=== PATIENT | female | born 1945 | race Caucasian/White ===

== ENCOUNTER 2020-01-21 12:23 | Outpatient (CLI) | payer MEDICARE, SELFPAY ==
--- NOTE | 2020-01-21 | USCV_ITS ---
Oc Edy Age: 74 Gender: F : 1945 Exam Date: 01/21/2020 12:44 Ordering Phys: Marisela Wade MD Technologist: Exam Location: [facility] [place]_ Indication: PAIN IN LEGS RIGHT LEFT Brachial 176.00 mmHg Brachial 165.00 mmHg Pressure (mmHg) Waveform Pressure (mmHg) Waveform 196.00 Above Knee 200.00 200 210.00 Below Knee 178.00 178 189.00 RECORD CHANGER 188.00 188 111.00 DPA 157.00 1.07 Ankle/Brachial Index 1.07 130.00 Pre-Exercise Toe Pressure 118.00 0.74 Pre-Exercise Toe/Brachial Index 0.67 FINDINGS Normal resting ABIs bilaterally Normal resting TBI on the right side with minimally diminished resting TBI on the left side Loss of dicrotic notch in the PVR waveforms bilaterally CONCLUSIONS Features suggestive of mild peripheral artery disease bilaterally No similar previous studies available for comparison Dr Sagrario Hansen MD [facility] (Electronically Signed) Final Date: 21 Jan 2020 14:12 S
--- NOTE | 2020-01-21 | XR_ITS ---
WS: [id number] XR chest 2V* [id number] REASON FOR EXAM: SHORTNESS OF BREATH FINDINGS: The lung kumar are hyper aerated with flattening of the hemidiaphragm. Nodules are seen in the upper left chest that show calcification. There is granulomas also seen off the right hilum. There is no definite pneumonia, pleural effusion, pulmonary edema, or mass effect. The hilum and apices normal. XR/XR chest 2V* [id number] IMPRESSION: Chronic obstructive pulmonary disease. Granulomas in both lung kumar.
== END 2020-01-21 12:24 | disposition home or self-care (01) ==
LOC: RAD 12:35
PROVIDERS: PCP Internal Medicine; Visit Provider Internal Medicine
DX: R06.02 Shortness of breath (principal); I73.9 Peripheral vascular disease, unspecified; J44.9 Chronic obstructive pulmonary disease, unspecified; J84.10 Pulmonary fibrosis, unspecified; M79.605 Pain in left leg; M79.604 Pain in right leg
CPT/HCPCS: 71046; 93923

== ENCOUNTER 2020-02-28 07:32 | Outpatient (CLI) | payer MEDICARE, SELFPAY ==
--- NOTE | 2020-02-28 10:19 | PFTS_ITS ---
Date of Study:02/28/20 Date of Dictation: MECHANICS: Forced vital capacity (FVC) is normal. Forced expiratory volume in one second (FEV1) is normal. FEV1/FVC is . FLOW VOLUME LOOP: Normal. LUNG VOLUMES: Not measured DIFFUSING CAPACITY FOR CARBON MONOXIDE: Not measured INTERPRETATION: The spirometry is normal. MTDD
== END 2020-02-28 07:33 | disposition home or self-care (01) ==
LOC: RT 07:36
PROVIDERS: PCP Internal Medicine; Visit Provider Internal Medicine
DX: J44.9 Chronic obstructive pulmonary disease, unspecified (principal); R06.02 Shortness of breath
CPT/HCPCS: 94010

== ENCOUNTER 2021-12-31 09:45 | Outpatient (CLI) | payer MEDICARE, SELFPAY ==
--- NOTE | 2021-12-31 09:55 | XR_ITS ---
WS: [email or web address] Exam: XR knee LT 3V* [id number] Date/Time of Exam: 12/31/2021 9:58 AM Reason For Exam: LEFT KNEE PAIN No fracture or dislocation noted. Articular relationships are intact. No joint effusion. XR/XR knee LT 3V* [id number] Impression: Normal left knee Kellgren-Nick Classification: 0
== END 2021-12-31 09:46 | disposition home or self-care (01) ==
LOC: RAD 09:47
PROVIDERS: PCP Internal Medicine; Visit Provider Internal Medicine
DX: M25.562 Pain in left knee (principal)
CPT/HCPCS: 73562

== ENCOUNTER 2022-02-21 05:38 | Outpatient (CLI) | payer MEDICARE, SELFPAY ==
--- NOTE | 2022-02-21 | USCV_ITS ---
Edy Renae Age: 76 Gender: F : 1945 Exam Date: 02/21/2022 06:07 Ordering Phys: Marisela Wade MD Technologist: NIXON Exam Location: [facility] – [place] Indication: LUE SWELLING WITH PULSATILE AREA AT ACF Risk Factors: Previous Vascular Surgery: Right BP: / Left BP: / RIGHT LEFT PSV PSV (cm/s) (cm/s) Waveform Waveform Subclavian Proximal 96.6 Triphasic Subclavian Distal 90.6 Biphasic Axillary 76.0 Biphasic Brachial Proximal 108.1 Biphasic Brachial Mid 95.9 Biphasic Brachial at AC 101.4 Biphasic Radial Proximal 67.6 Triphasic Radial Mid 50.9 Triphasic Radial at Wrist 60.3 Triphasic Ulnar Proximal 50.4 Triphasic Ulnar Mid 80.3 Triphasic Ulnar at Wrist 70.1 Triphasic FINDINGS DUPLICATED SYSTEM SEEN IN LEFT BRACHIAL ARTERIES FROM PROX-DIST Patent subclavian, axillary, brachial, radial ulnar arteries in the left upper extremity. 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 No evidence of aneurysm in the above-mentioned arteries #2. 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 #3. No evidence of any significant arterial obstruction No similar previous studies are available for comparison Dr Sagrario Hansen MD [facility] (Electronically Signed) Final Date: 21 February 2022 16:52 S
== END 2022-02-21 05:39 | disposition home or self-care (01) ==
PROVIDERS: PCP Internal Medicine; Visit Provider Internal Medicine
DX: M79.89 Other specified soft tissue disorders (principal)
CPT/HCPCS: 93931

== ENCOUNTER 2022-04-10 14:14 | Outpatient (CLI) | payer MEDICARE, SELFPAY ==
--- NOTE | 2022-04-10 14:26 | XR_ITS ---
WS: [email or web address] Exam: XR knee RT 4V [id number] Date/Time of Exam: 04/10/2022 2:28 PM Reason For Exam: KNEE PAIN RIGHT No fracture or dislocation noted. The joint compartments are relatively well maintained. No significa nt joint effusion. XR/XR knee RT 4V [id number] IMPRESSION: 1. Negative right knee.
== END 2022-04-10 14:15 | disposition home or self-care (01) ==
PROVIDERS: PCP Internal Medicine; Visit Provider Internal Medicine
DX: M25.561 Pain in right knee (principal)
CPT/HCPCS: 73564

== ENCOUNTER 2022-05-15 12:33 | Outpatient (CLI) | payer MEDICARE, SELFPAY ==
--- NOTE | 2022-05-15 12:52 | MR_ITS ---
WS: [id number] MRI RIGHT KNEE NONCONTRAST TECHNIQUE: Axial PD, coronal PD fat sat, coronal PD, sagittal PD, and sagittal PD fat-sat images obta ined. CLINICAL INFORMATION: R KNEE PAIN COMPARISON: None. 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 Distal quadriceps and patella tendons are intact. Small to moderate suprapatellar effusion. Normal AC L and PCL. Hypertrophic patella. Chronic narrowing of the medial and lateral joint compartments with mild chondromalacia. Blunting involving the medial meniscus with some peripheral extrusion of the med ial meniscus. Chronic appearing tear involving the medial meniscal root with blunting. Lateral menisc us appears intact. Moderate chondromalacia patella. No subchondral edema in the patella. Popliteal cyst measuring 1.4 x 1.5 x 4.1 CM. Normal medial and lateral collateral ligaments. MR/MR knee RT wo con* [id number] IMPRESSION: 1. Normal ACL and PCL. 2. Blunting of the medial meniscus with mild peripheral extrusion of the media l meniscus. Chronic appearing tear involving the meniscal root with narrowing o f the medial joint compartment. 3. Medial and lateral collateral ligaments are intact. 4. Lobulated popliteal cyst measuring 1.4 x 1.5 x 4.1 cm 5. Moderate chondromalacia patella. No subchondral edema. 6. Small to moderate joint effusion. Outbridge grading: grade III: partial-thickness cartilage loss with focal ulcer ation
--- NOTE | 2022-05-15 12:53 | US_ITS ---
WS: [email or web address] TRANSVAGINAL PELVIC ULTRASOUND HISTORY: PELVIC PAIN COMPARISON: 07/25/2014 Patient is status post hysterectomy. As per history the ovaries remain. There is no midline mass. No uterus identified. No soft tissue mass or fluid in the pelvis. Neither o vary is identified. There are no masses within either adnexa. US/US transvaginal [id number] IMPRESSION: 1. Status post hysterectomy. 2. No pelvic mass or free fluid.
== END 2022-05-15 12:34 | disposition home or self-care (01) ==
PROVIDERS: PCP Internal Medicine; Visit Provider Internal Medicine
DX: M23.203 Derangement of unspecified medial meniscus due to old tear or injury, right knee (principal); R10.2 Pelvic and perineal pain; M25.861 Other specified joint disorders, right knee; M22.41 Chondromalacia patellae, right knee; M25.461 Effusion, right knee; Z90.710 Acquired absence of both cervix and uterus
CPT/HCPCS: 73721; 76830

== ENCOUNTER 2022-05-22 15:08 | Outpatient (CLI) | payer MEDICARE, SELFPAY ==
--- NOTE | 2022-05-22 15:32 | XR_ITS ---
WS: [email or web address] DEXA (DUAL ENERGY X-RAY ABSORPTIOMETRY) Bone mineral density was performed using a [employer] machine. HISTORY: OSTEOPENIA WITH HIGH FRACTURE RISK COMPARISON: 07/26/2019 Lumbar spine BMD (L1-L4): 1.122 g/cm2 T score: -0.5 Z score: 1.6 Total hip BMD: Left: 0.820 g/cm2. T score: -1.5 Z score: 0.5 Right: 0.844 g/cm2. T score: -1.3 Z score: 0.7 10 year probability of a major osteoporotic fracture is 13.5%. Compared to the prior study from 07/26/2019. Lumbar spine bone mineral density has increased by 2.5%. Bilateral hips bone mineral density has increased by 1.1%. XR/XR DEXA axial skeleton* [id number] IMPRESSION: OSTEOPENIA. based upon the WHO classification for females. Significant increase in bone mineral density within the lumbar spine since the prior study.
== END 2022-05-22 15:09 | disposition home or self-care (01) ==
LOC: RAD 15:09
PROVIDERS: PCP Internal Medicine; Visit Provider Internal Medicine
DX: M85.80 Other specified disorders of bone density and structure, unspecified site (principal)
CPT/HCPCS: 77080

== ENCOUNTER 2023-02-25 07:52 | Outpatient (CLI) | payer MEDICARE, SELFPAY ==
--- NOTE | 2023-02-25 08:03 | CT_ITS ---
WS: [email or web address] CT CALCIUM SCORE REASON FOR VISIT: HYPERLIPIDEMIA; Coronary artery disease risk assessment COMPARISON: None TECHNIQUE: Noncontrast coronary CT in combination with quantitative analysis performed on a separate workstation were used to determine CACS (Agatston score) TOTAL EXAM DOSE: 41.86 mGy.cm ECG GATING: Prospective SCAN RANGE: Pulmonary artery bifurcation to Inferior aspect of heart COMPLICATIONS: None FINDINGS: Technical Quality/Examination Quality: Good Limitaiton: None OVERALL SCORES Total calcium score: 394 Total volume score: 404 mm3 Percentile: 75th to 90th percentile % ARTERY SCORES Left main coronary artery: 35 Left anterior descending artery: 96 Left circumflex artery: 184 Right coronary artery: 79 PDA not well visualized. OTHER FINDINGS: Mediastinum: Normal caliber thoracic aorta. No mediastinal or hilar lymphadenopathy. Thoracic aorta: Normal Lungs: Moderate chronic emphysematous changes partially visualized. Slight LEFT basilar atelectasis. Small nodule or granuloma measuring 4.6 mm LEFT upper lobe anteriorly. Slight hazy groundglass opaci ty RIGHT lower lobe measuring 11 mm. Recommend further evaluation with chest CT. Upper Abdomen: Adrenal glands are normal. MINIMAL: 1-10 MILD: 11-100 MODERATE: 101-400 SEVERE:>400 CT/CT heart w calcium score [id number] IMPRESSION: 1. Total calcium score 394 between the 75th and 90th percentile for females ab ove the age of 74. 2. Recommend chest CT for evaluation of the partially visualized small LEFT up per lobe nodule that may be partially calcified and RIGHT lower lobe hazy opaci ty GRADING OF CORONARY ARTERY DISEASE (BASED ON TOTAL CALCIUM SCORE) NO EVIDENCE OF CAD: 0 calcium score
== END 2023-02-25 07:53 | disposition home or self-care (01) ==
PROVIDERS: PCP Internal Medicine; Visit Provider Internal Medicine
DX: E78.5 Hyperlipidemia, unspecified (principal); Z13.6 Encounter for screening for cardiovascular disorders; R91.1 Solitary pulmonary nodule; R91.8 Other nonspecific abnormal finding of lung field
CPT/HCPCS: 75571

== ENCOUNTER 2023-03-03 06:42 | Outpatient (CLI) | payer MEDICARE, SELFPAY ==
--- NOTE | 2023-03-03 06:52 | CT_ITS ---
WS: [email or web address] EXAMINATION: CT chest w con* [id number] ORDER DATE: 03/03/2023 6:52 AM COMPARISON: 02/25/2023 HISTORY: PULMONARY NODULE CONTRAST: 95 mL of Omnipaque [address] scans at [facility] use at least one of these dose optimization techniques: automated e xposure control; mA and/or kV adjustment per patient size (includes targeted exams where dose is matc hed to clinical indication); or iterative reconstruction. TECHNIQUE: Multiple axial images of the chest were obtained with 2-D imaging without the administration of contr ast. Evaluation of the mediastinum and nereyda for adenopathy and other pathology is significantly limited by the lack of intravascular contrast. FINDINGS: Lungs and Central Bronchi: Densely calcified granuloma in the posterior left upper lobe. No other dis crete nodules. There is diffuse centrilobular emphysema. Pleura: within normal limits. Vessels: Atherosclerotic changes in the coronary arteries.. Heart: normal size. No pericardial effusion. Mediastinum and Nereyda: within normal limits. Chest Wall and Lower Neck: within normal limits. Upper Abdomen: (As visualized) 3 cm mostly cystic focus anterior left hepatic lobe Bones: within normal limits. CT/CT chest w con* [id number] IMPRESSION: DIFFUSE CENTRILOBULAR EMPHYSEMA. GRANULOMA LEFT UPPER LOBE NO OTHER DISCRETE NO DULES. HEPATIC CYSTIC FOCUS MAY FOLLOW WITH ULTRASOUND IF CLINICALLY INDICATED
[2023-03-03 07:15] LABS: Blood Urea Nitrogen 13 mg/dL (8-23)
[2023-03-03] MEDS: iohexol 350 mg/mL 500 mL Btl (per mL) IV (07:21)
== END 2023-03-03 06:43 | disposition home or self-care (01) ==
PROVIDERS: Radiology Diagnostic Radiology; PCP Internal Medicine; Visit Provider Internal Medicine
DX: R91.1 Solitary pulmonary nodule (principal); J43.9 Emphysema, unspecified; K76.89 Other specified diseases of liver
CPT/HCPCS: 71260; 82565; 84520; Q9967

== ENCOUNTER 2023-03-14 06:32 | Outpatient (CLI) | payer MEDICARE, SELFPAY ==
[2023-03-14 06:39] VITALS: BMI 22.1
--- NOTE | 2023-03-14 06:47 | ECG_ITS ---
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 Interpretive Statements NAME OF STUDY: LEXISCAN SESTAMIBI STRESS TEST INDICATION: [CAD, ] Procedure: At the baseline, the blood pressure was 134/79 mmHg with a heart rate of 61 bpm. The electrocardiogram showed normal sinus rhythm, normal axis with normal ST and T's. The Lexiscan was infused over a period of 20 seconds. A total of 0.4 mg of Lexiscan was infused. The stress phase was continued for a total of 5 minutes. Heart rate was at the end of stress phase was 90 bpm and a blood pressure of 136/64 mmHg. The EKG at the peak infusion revealed normal sinus rhythm with no significant ST-T wave changes. Sestamibi was injected 20 seconds after the Lexiscan infusion. Blood pressure at the end of recovery phase was 133/55 mmHg with a heart rate of 83 bpm. Conclusion: 1. Normal EKG response to Lexiscan infusion 2. No Lexiscan induced chest pain or cardiac arrhythmia. 3. Normal blood pressure and heart rate response. 4. Sestamibi/sestamibi perfusion scan pending; see separate report. Electronically Signed On 03-15-2023 14:27:18 CDT by Santana Yang M.D. [email or web address]/store/[id number]
--- NOTE | 2023-03-14 06:48 | NMCV_ITS ---
NM padma perf SPECT r/s* [id number] Edy Renae Age: 77 Gender: F : 1945 Exam Date: 03/14/2023 06:48 Ordering Phys: Marisela Wade MD Technologist: JEWEL Stratton Exam Location: [facility] Indications: ATHEROSCLEROTIC HEART DISEASE STRESS TEST Please [facility] IMAGE PROTOCOL Rest/Stress 1 Lexiscan Day Radiopharmaceutical Dose (mCi) Administration Site Administered by Rest: Tc-99m 10.8 IV Shahriar Rivera, TRAINMAN Sestamibi Stress:Tc-99m 32.8 IV Shahriar Rivera, TRAINMAN Sestamibi Rest: 14-Mar-2023 60 Discovery 630 Stress: 14-Mar-2023 30 Discovery 630 0.4mg Lexiscan. Supine position only as patient was unable to lay prone. SPECT RESULTS Technical Quality: Good Raw Data Analysis: Normal Image Corrections: No attenuation or motion correction applied Summed Stress Score: 7 Summed Rest Score: 4 Summed Difference Score: 3 PERFUSION FINDINGS There is a medium sized, partially reversible perfusion defect noted in apical and apical inferior wall. This is consistent with medium sized area of prior infarct with hilario-infarct ischemia in these territories. FUNCTIONAL RESULTS (calculated via Gated SPECT) Stress Image LV EF (%): 82 Stress EDV (mL):49 TID: 1.33 Stress ESV (mL):9 FUNCTIONAL FINDINGS: There is normal left ventricular systolic function. TID ratio is 1.33. IMPRESSIONS 1. Abnormal myocardial perfusion imaging with medium sized prior infarct with hilario-infarct ischemia in apical and apical inferior teran. 2. LV systolic function is normal 3. TID ratio is elevated. This may represent subendocardial ischemia. Santana Yang MD (Electronically Signed) Final Date: 15 March 2023 13:31 S
[2023-03-14] MEDS: regadenoson 0.4 Mg/5 ml Syringe IVP (08:18)
[2023-03-14 08:34] VITALS: BP 133/55; PULSE 83
== END 2023-03-14 06:33 | disposition home or self-care (01) ==
PROVIDERS: PCP Internal Medicine; Visit Provider Internal Medicine
DX: R07.9 Chest pain, unspecified (principal); I25.10 Atherosclerotic heart disease of native coronary artery without angina pectoris
CPT/HCPCS: 36415; 78452; 93017; 96374; A9500; J2785

== ENCOUNTER 2023-03-18 00:10 | Observation (INO) | payer MEDICARE, SELFPAY ==
[2023-03-18] VITALS (17 sets, daily range): BP systolic 129–196; BP diastolic 62–95; PULSE 60–85; RESP 14–18; TEMP 36.4–36.8; O2SAT 94–98
--- NOTE | 2023-03-18 00:18 | XRR_ITS ---
PROCEDURE INFORMATION: Exam: XR Chest Exam date and time: 03/18/2023 12:31 AM Age: 77 years old Clinical indication: Dyspnea TECHNIQUE: Imaging protocol: Radiologic exam of the chest. Views: 1 view. COMPARISON: CT chest w con* [id number] 03/03/2023 7:17 AM FINDINGS: Lungs: Unremarkable. No consolidation. A few minute calcified lung nodules are seen incidentally. Pleural spaces: Unremarkable. No pleural effusion. No pneumothorax. Heart/Mediastinum: Unremarkable. No cardiomegaly. Bones/joints: Unremarkable. XR/XR chest 1V portable [id number] IMPRESSION: No acute findings.
--- NOTE | 2023-03-18 00:36 | ECG_ITS ---
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 Measurements Intervals Dagmar Rate: 74 P: 43 SD: 157 QRS: -16 QRSD: 103 T: 41 QT: 360 QTc: 401 Interpretive Statements SINUS RHYTHM VOLTAGE CRITERIA FOR LVH [MEETS CRITERIA IN ONE OF: R(aVL), S(V1), R(V5), R(V5/V6)+S(V1)] No previous ECG available for comparison Electronically Signed On 03-18-2023 8:29:09 CDT by Santana Yang M.D. [email or web address]/store/[id number]
--- NOTE | 2023-03-18 00:49 | ED_ITS ---
HPI - SOB/Dyspnea General: Chief Complaint: Shortness of Breath/Dyspnea Stated Complaint: sob Time Seen by Provider: 03/18/23 00:49 History of Present Illness: HPI Narrative: 77-year-old lady presenting to the emergency department for shortness of breath, generalized malaise, arm heaviness and chest discomfort. She notes initial gradual onset of symptoms approximately 2 weeks ago that has progressively worsened. Orthopnea and dyspnea with exertion. Has had some outpatient work-up which shows prior IA with periinfarct ischemia. Also diagnosed with emphysema though denies recent infectious symptoms or shortness of breath. No other specific changes in health, exacerbating, or alleviating factors identified. Onset (ago): week(s) Timing: progressively worsening Exacerbating factors: lying flat and exertion Review of Systems General: Reports: 10 or more systems reviewed and unremarkable except in HPI and below PFSH ED PFSH: Medical History Peripheral Vascular Disease Varicose veins of bilateral lower extremities with pain Family History Other COPD (chronic obstructive pulmonary disease) Social History Smoking and tobacco status: former smoker Second hand smoke exposure: Yes (as a child) Alcohol intake: never Substance/Drug Use: never Physical Exam Const: COMMON NORMALS: alert GENERAL APPEARANCE: cooperative and well developed HENMT: COMMON NORMALS: normocephalic and atraumatic HEAD & SCALP: normocephalic and atraumatic Eye: COMMON NORMALS: conjunctivae normal CONJUNCTIVA: Yes conjunctivae normal SCLERA: sclerae normal Neck/C-Spine: COMMON NORMALS: supple GENERAL: Yes trachea midline Resp: COMMON NORMALS: clear to auscultation bilaterally EFFORT & INSPECTION: Yes able to speak in complete sentences AUSCULTATION: clear to auscultation bilaterally Cardio: COMMON NORMALS: regular rate and regular rhythm RATE: regular rate RHYTHM: regular rhythm GI: COMMON NORMALS: Soft to palpation PALPATION: Yes Soft to palpation and No Tenderness to palpation present (GI) Extremity: GENERAL: Yes normal exam except as noted and No edema Neuro: COMMON NORMALS: moves all extremities SENSORIUM/ORIENTATION: Yes alert and No Orientation impaired Psych: COMMON NORMALS: mental status grossly normal and Normal thought process present THOUGHT PROCESS: Normal thought process present Course Vital Signs: Vital signs: Vital Signs Temperature 98.4 F 03/19/23 17:25 Pulse Rate 78 03/19/23 17:25 Respiratory Rate 16 03/19/23 17:25 Blood Pressure 131/78 03/19/23 17:25 Pulse Oximetry 96 03/19/23 17:25 Oxygen Delivery Me thod Room Air 03/19/23 15:27 MDM - SOB/Dyspnea Medical Decision Making 77-year-old lady presenting with progressively worsening chest pressure with radiation arms and exertional shortness of breath with recent abnormal stress test. Exam as above. Nontoxic. EKG demonstrates sinus rhythm with left axis deviation, no STEMI. Labs with no significant hematologic or metabolic abnormality. Negative range 2-hour delta troponin. Chest x-ray with no lobar consolidation or pneumothorax. Recent stress test reviewed. Discussed with cardiology. Plan for inpatient management due to concern for unstable angina. The results of ED evaluation were discussed with the patient including plan for admission due to requirement for level of care not available if discharged to [place] event significant worsening/deterioration. Patient agreeable with plan. Discussed with hospitalist service who was agreeable to admit patient. Medical Records I reviewed the patient's medical records. Lab Data I reviewed the patient's lab results. 03/19/23 03:54 03/19/23 03:54 Labs/Radiology: Radiology Impressions Chest X-Ray 03/18/23 00:18 IMPRESSION: No acute findings. Laboratory Results WBC 7.2 10^3/uL (4.0-10.0) 03/18/23 00:55 RBC 4.14 10^6/uL (4.1-5.3) 03/18/23 00:55 Hgb 12.9 g/dL (11.5-15.3) 03/18/23 00:55 Hct 38.4 % (37.0-47.0) 03/18/23 00:55 MCV 92.8 fl (81-99) 03/18/23 00:55 MCH 31.2 pg (28.0-34.0) 03/18/23 00:55 MCHC 33.6 g/dL (30.0-36.0) 03/18/23 00:55 RDW 12.6 % (12.1-15.1) 03/18/23 00:55 Plt Count 247 10^3/cmm (130-400) 03/18/23 00:55 MPV 9.5 fL (7.4-10.4) 03/18/23 00:55 Neut % (Auto) 54.6 % 03/18/23 00:55 Lymph % (Auto) 32.3 % 03/18/23 00:55 [place] % (Auto) 8.4 % 03/18/23 00:55 Eos % (Auto) 3.6 % 03/18/23 00:55 Baso % (Auto) 0.8 % 03/18/23 00:55 Neut # (Auto) 3.90 10^3/uL (1.8-7.7) 03/18/23 00:55 Lymph # (Auto) 2.3 10^3/uL (0.8-4.8) 03/18/23 00:55 [place] # (Auto) 0.6 10^3/uL (0.2-0.9) 03/18/23 00:55 Eos # (Auto) 0.3 10^3/uL (0.0-0.8) 03/18/23 00:55 Baso # (Auto) 0.1 10^3/uL (0.0-0.1) 03/18/23 00:55 Nucleated RBC % (auto) 0 % 03/18/23 00:55 Nucleated RBCs # 0.0 /100WBC 03/18/23 00:55 Sodium 138 mmol/L (136-145) 03/18/23 00:55 Potassium 4.0 mmol/L (3.5-5.1) 03/18/23 00:55 Chloride 101 mmol/L (98-107) 03/18/23 00:55 Carbon Dioxide 25 mmol/L (22-29) 03/18/23 00:55 Anion Gap 16.0 (5-19) 03/18/23 00:55 BUN 11 mg/dL (8-23) 03/18/23 00:55 Creatinine 0.9 mg/dL (0.5-0.9) 03/18/23 00:55 GFR Calculation Not Reportable 03/18/23 00:55 Glucose 98 mg/dL (65-115) 03/18/23 00:55 Estimat Average Glucose 111 03/18/23 00:55 Hemoglobin A1c 5.5 % (4.0-6.0) 03/18/23 00:55 Calculated Osmolality 285 mOsm/kg (285-295) 03/18/23 00:55 Calcium 9.6 mg/dL (8.5-10.5) 03/18/23 00:55 Total Bilirubin 0.2 mg/dL (0.15-1.2) 03/18/23 00:55 AST 31 U/L (0-32) 03/18/23 00:55 ALT 22 U/L (0-33) 03/18/23 00:55 Alkaline Phosphatase 89 U/L (35-105) 03/18/23 00:55 Troponin T Baseline 12 ng/L (0-10) H 03/18/23 00:55 Troponin T 120 Minute 9.36 ng/L (0-10) 03/18/23 02:43 Delta Troponin T -2.64 ABS# (0-10) L 03/18/23 02:43 NT-Pro-B Natriuret Pep 36 pg/mL (0-450) 03/18/23 00:55 Total Protein 7.6 g/dL (6.6-8.7) 03/18/23 00:55 Albumin 5.0 g/dL (3.5-5.2) 03/18/23 00:55 Globulin 2.6 g/dL (1.3-4.6) 03/18/23 00:55 Triglycerides 310 mg/dL (0-150) H 03/18/23 00:55 Cholesterol 272 mg/dL (0-200) H 03/18/23 00:55 LDL Cholesterol, Calc 163 mg/dL (50-129) H 03/18/23 00:55 HDL Cholesterol 47 mg/dL (60-100) L 03/18/23 00:55 LDL/HDL Ratio 3.47 RATIO (0.00-3.22) H 03/18/23 00:55 Cholesterol/HDL Ratio 5.79 mg/dL (0.0-4.40) H 03/18/23 00:55 Lipase 61 U/L (13-60) H 03/18/23 00:55 TSH 5.22 uIU/mL (0.27-4.20) H 03/18/23 00:55 Free T4 1.05 ng/dL (0.82-1.77) 03/18/23 00:55 Discharge Plan Discharge Patient Disposition: Placed in Observation Admit Provider: Melonie Jha Clinical Impression: Chest pain Discharge Diet: Cardiac Discharge Activity: Increase activity as tolerated and Limit activity as instructed Coding Level of Care Code ED Mechanism Inspector for Giovana Thompson
[2023-03-18 01:02] LABS: Basophils # 0.1 10^3/uL (0.0-0.1); Basophils % 0.8 %; Eosinophils # 0.3 10^3/uL (0.0-0.8); Eosinophils % 3.6 %; Hematocrit 38.4 % (37.0-47.0); Hemoglobin 12.9 g/dL (11.5-15.3); Lymphocytes # 2.3 10^3/uL (0.8-4.8); Lymphocytes % 32.3 %; Mean Corpuscular HGB Conc 33.6 g/dL (30.0-36.0); Mean Corpuscular Hemoglobin 31.2 pg (28.0-34.0); Mean Corpuscular Volume 92.8 fl (81-99); Mean Platelet Volume 9.5 fL (7.4-10.4); Monocytes # 0.6 10^3/uL (0.2-0.9); Monocytes % 8.4 %; Neutrophils % 54.6 %; Nucleated Red Blood Cells % 0 %; Platelet Count 247 10^3/cmm (130-400); Red Blood Count 4.14 10^6/uL (4.1-5.3); Red Cell Distribution Width 12.6 % (12.1-15.1); White Blood Count 7.2 10^3/uL (4.0-10.0)
[2023-03-18] MEDS: aspirin 81 mg Chew Tablet 324 MG PO (01:08)
[2023-03-18 01:37] LABS: Troponin(5th) Baseline 12 ng/L (0-10)
[2023-03-18 02:36] LABS: NT Pro B Type Natriuretic Pept 36 pg/mL (0-450)
--- NOTE | 2023-03-18 02:36 | ECG_ITS ---
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 Measurements Intervals [place] Rate: 65 P: 52 MT: 156 QRS: -13 QRSD: 87 T: 53 QT: 374 QTc: 391 Interpretive Statements SINUS RHYTHM MODERATE VOLTAGE CRITERIA FOR LVH, CONSIDER NORMAL VARIANT [MEETS CRITERIA IN ONE OF: R(aVL), S(V1), R(V5), R(V5/V6)+S(V1)] No previous ECG available for comparison Electronically Signed On 03-18-2023 8:30:41 CDT by Santana Yang M.D. [email or web address] [email or web address] memorial hospitalViaBillmercy health [email or web address]/[id number]
[2023-03-18] MEDS: ipratropium-albuterol 3 mL Neb INHALATION (02:45)
[2023-03-18 02:51] LABS: Alanine Aminotransferase 22 U/L (0-33); Alkaline Phosphatase 89 U/L (35-105); Aspartate Amino Transferase 31 U/L (0-32); Blood Urea Nitrogen 11 mg/dL (8-23); Calcium 9.6 mg/dL (8.5-10.5); Carbon Dioxide 25 mmol/L (22-29); Chloride 101 mmol/L (98-107); Globulin 2.6 g/dL (1.3-4.6); Glucose 98 mg/dL (65-115); Lipase 61 U/L (13-60); Osmolality Calculated 285 mOsm/kg (285-295); Sodium 138 mmol/L (136-145); Total Bilirubin 0.2 mg/dL (0.15-1.2); Total Protein 7.6 g/dL (6.6-8.7)
[2023-03-18 03:09] LABS: Troponin 5 2HR 9.36 ng/L (0-10)
--- NOTE | 2023-03-18 03:40 | P.HP_ITS ---
Providers/Chief Complaint Primary Care Provider: Marisela Wade MD Chief Complaint: sob History of Present Illness Edy Renae is a 77 year old female with past medical history of peripheral vascular disease, varicose veins, former smoker presented to the hospital today for shortness of breath generalized weakness and chest pain. She states that her symptoms really started about 2 weeks ago. Her chest pain does radiate to her arm and her arm feels heavy. She also feels more short of breath when laying flat and upon exerting herself. She does have an official diagnosis of emphysema and she has had PFTs done in 2019. No exacerbating or alleviating factors for chest pain at this time. She did see her primary care doctor regarding above complaints and recently had a stress test done as an outpatient. Stress test resulted March 14, 2023 showed abnormal myocardial perfusion imaging with medium size prior infarct with hilario-infarct ischemia in the apical and apical inferior teran. 3 times daily ratio elevated. This may represent subendocardial ischemia. At this time chest pain is better. ED course: Chest x-ray unremarkable, of note patient also had cardiac CT done as an outpatient recently as well which showed a total calcium score of 394. CT chest also showed diffuse centrilobular emphysema and granuloma of left upper lobe no other discrete nodules. WBC 7.2, hemoglobin 12.9, platelets 247, sodium 138, potassium 4.0, creatinine 0.9, baseline troponin 12, 2-hour troponin 9.36, delta -2.64, BNP 36, lipase 61. No echocardiogram on file. Medications/Allergies Home Medications Medication Instructions Recorded Confirmed Last Taken Type aspirin 81 mg tablet,delayed 81 mg PO DAILY 02/03/20 01/23/21 Unknown History release (Adult Aspirin Regimen) red clover supplement #1 ea 02/03/20 01/23/21 Unknown History cilostazol 50 mg tablet 50 mg PO BID #60 tabs 01/23/21 01/23/21 Unknown Rx Allergies Allergy/AdvReac Type Severity Reaction Status Date / Time Ufwzcxa-XYY-BmD Reductase Allergy Unknown Unknown Verified 01/23/21 12:56 Inhibitor [Qyuzhfu-Ood-Enl Reductase Inhibitor] PFSH Acute PFSH: Medical History Peripheral Vascular Disease Varicose veins of bilateral lower extremities with pain Family History Other COPD (chronic obstructive pulmonary disease) Social History Smoking and tobacco status: former smoker Second hand smoke exposure: Yes (as a child) Alcohol intake: never Substance/Drug Use: never Vitals/I&O/Wt Last Vital Signs Temp 97.6 F 03/18/23 00:12 Pulse 68 03/18/23 02:53 Resp 18 03/18/23 02:53 BP 166/83 03/18/23 02:17 Pulse Ox 98 03/18/23 02:53 O2 Del Method Room Air 03/18/23 02:53 Weight last 48 hrs Weight 56.699 kg Physical Exam Narrative: General: Alert oriented x3, no acute distress HEENT: Normocephalic, atraumatic, EOMI, Cardio: Regular rate rhythm, normal S1-S2, Respiratory: Clear to auscultation bilaterally no wheezes no rhonchi, chest pain not reproducible to palpation. GI: Abdomen soft, nontender,bowel sounds + Behavior: Appropriate and cooperative Extremities: No edema. Data 03/18/23 00:55 03/18/23 00:55 A&P Assessment and plan (1) Chest pain: (2) Peripheral Vascular Disease: (3) Varicose veins of bilateral lower extremities with pain: Plan #Chest pain, positive stress test outpatient, unstable angina #Shortness of breath on exertion most likely secondary to above #Centrilobular emphysema #Peripheral vascular disease #Varicose veins ? Troponin negative x2, delta negative. Await 6-hour troponin ? Has typical cardiac symptoms. Had a recent positive stress test as an outpatient. ? Check echocardiogram ? Check lipid panel, hemoglobin A1c, TSH, cortisol ? DuoNeb every 6 hours as needed ? Cardiology consulted from ER. Patient n.p.o. at midnight for possible procedure in a.m. ? We will place on therapeutic Lovenox at this time ? Start , Lopressor 12.5 twice daily, aspirin 81. We will hold off on loading with Plavix till seen by cardiology ? Patient apparently allergic to statins. ? EKG on arrival to ER did not show any acute ischemic changes. We will check serial EKGs Full code SCDs, therapeutic Lovenox for DVT prophylaxis Attestations Medical Necessity Statement*: Greater than 2 midnight stay for management of unstable angina. Coding Level of Care Code G0425 (30 min) TH Encounter Time (min): 45 Patient seen via Telehealth in the acute care setting (hospital or ED location) by agreement and consent of patient or patient bilingual inside sales representative. Telehealth technology used during the visit includes video and audio. This patient encounter is appropriate and reasonable under the circumstances given the patient?s particular presentation at this time. The patient has been advised of the potential risks and limitations of this mode of treatment (including but not limited to the absence of in-person examination at this time) and has agreed to be treated by an off-site physician for this visit. If deemed clinically necessary from this telehealth visit, or if condition or consent for telehealth visit changes, an in-person visit will be arranged. For this encounter, total time for the origination of telehealth care on this date is as shown. Diagnoses Chest pain R07.9 Peripheral Vascular Disease I73.9 Varicose veins of bilateral lower extremities with pain I83.813
[2023-03-18 03:41] LABS: Troponin 5 2HR Delta -2.64 ABS# (0-10)
--- NOTE | 2023-03-18 04:01 | USCV_ITS ---
Edy Renae Age: 77 Gender: F : 1945 Exam Date: 03/18/2023 04:21 Ordering Phys: Melonie Jha MD Technologist: ANA PAULA [place] [facility] [place]ication: chest pain, SOB, general malaise x 2 weeks. No history of cardiac intervention per patient. Hx angiogram 2006 = MVP per pt. BP: 196 / 95 HR: 72 Rhythm: Sinus Technical Quality: Good MEASUREMENTS (Male / Female) Normal Values 2D ECHO LV Diastolic Diameter PLAX 3.0 cm 4.2 - 5.9 / 3.9 - 5.3 cm LV Systolic Diameter PLAX 1.8 cm IVS Diastolic Thickness 1.1 cm 0.6 - 1.0 / 0.6 - 0.9 cm IVS Systolic Thickness 1.8 cm LVPW Diastolic Thickness 0.9 cm 0.6 - 1.0 / 0.6 - 0.9 cm LVPW Systolic Thickness 0.8 cm LVOT Diameter 1.7 cm LV Ejection Fraction 2D Teich 73.4 % LV Ejection Fraction MOD 2C 65.1 % LV Ejection Fraction 2C AL 64.4 % LA Diameter 3.2 cm LA Width 3.1 cm LA Height 4.3 cm RA Width 2.8 cm RA Height 3.5 cm Aorta at Sinotubular Diameter 2.7 cm IVC Diameter 1.7 cm M-MODE Aortic Annulus Diameter 2.5 cm LA Ao Ratio MM 1.3 MV E Point Septal Separation 0.4 cm DOPPLER AV Peak Velocity 118.0 cm/s LVOT Peak Velocity 87.0 cm/s AV Area Cont Eq vti 2.1 cm squared AV Area Cont Eq pk 1.7 cm squared MV Peak Velocity 111.0 cm/s MV Area PHT 2.7 cm squared Mitral E to A Ratio 0.8 MV E' Velocity 48.5 cm/s Mitral E to MV E' Ratio 13.2 Mitral E to LV E' Lateral Ratio 13.2 Mitral E to LV E' Septal Ratio 13.4 TR Peak Velocity 246.3 cm/s TR Peak Gradient 24.3 mmHg TV Peak E Velocity 46.0 cm/s Right Atrial Pressure 5.0 mmHg Pulmonary Artery Systolic Pressu 29.3 mmHg PV Peak Velocity 103.0 cm/s FINDINGS Left Ventricle Left ventricle is normal in size. LV systolic function is normal with EF of 60-65%. No regional wall motion abnormalities are seen. Grade 1 diastolic dysfunction Right Ventricle Normal in size and function Right Atrium Normal in size Left Atrium Normal in size Mitral Valve Mild mitral annular calcification. Mild mitral regurgitation. Aortic Valve Structurally normal aortic valve. No significant stenosis or regurgitation. Tricuspid Valve Mild tricuspid regurgitation. Pulmonary artery systolic pressure is normal Pulmonic Valve Not well visualized Pericardium Normal Aorta Normal in size IVC Appears to be normal CONCLUSIONS LV systolic function is normal with EF of 60 to 65%. Grade 1 diastolic dysfunction Mild mitral regurgitation Mild tricuspid regurgitation. No comparison studies are available. Santana Yang MD (Electronically Signed) Final Date: 18 March 2023 10:30 S
[2023-03-18 04:30] LABS: Chol HDL Ratio 5.79 mg/dL (0.0-4.40); Cholesterol 272 mg/dL (0-200); HDL Cholesterol 47 mg/dL (60-100); LDL Cholesterol Calculated 163 mg/dL (50-129); LDL HDL Ratio 3.47 RATIO (0.00-3.22); Thyroid Stimulating Hormone 5.22 uIU/mL (0.27-4.20); Triglycerides 310 mg/dL (0-150)
[2023-03-18] MEDS: enoxaparin 60 mg/0.6 mL Syringe SUBCUT ×2 (04:39→16:37)
[2023-03-18] MEDS: sodium chloride 0.9% 1,000 ML 75 ML IV (04:40)
[2023-03-18 05:16] LABS: Free T4 Free Thyroxine 1.05 ng/dL (0.82-1.77)
[2023-03-18] MEDS: sodium chloride 0.9% 1,000 ML 100 ML IV (05:28)
[2023-03-18 07:34] LABS: Troponin 5 6HR 8.67 ng/L (0-10)
[2023-03-18 07:37] LABS: Troponin 5 6HR Delta -3.33 ng/L (0-12)
--- NOTE | 2023-03-18 08:33 | P.CONIM_ITS ---
Providers/Reason For Consult Consulting Physician/Specialty*: Santana Yang MD/ Cardiology Reason for Consult*: Worsening angina/abnormal stress test Requesting Physician: Dr Jha Attending Physician: Melonie Jha MD Primary Care Provider: Marisela Wade MD History of Present Illness History of Present Illness Edy Renae is a 77 year old female with past medical history of hyperlipidemia and PAD who has been having on and off chest pain and shortness of breath for the last 2 weeks. She had a stress test recently that showed prior infarct with hilario-infarct ischemia in apical and apical inferior teran. E KG showed normal sinus rhythm with no significant ischemic changes. Troponins have not trended up. She feels a heavy sensation in the chest radiating to the arms. It has been worsening over the last 2 weeks and she decided to come to the ER. Review of Systems Const: Denies: fever(s) or chills Eyes: Denies: change in vision Card: Reports: dyspnea on exertion; Denies: chest pain, palpitations, swelling of feet/ankles, lightheadedness or orthopnea Resp: Denies: dyspnea, productive cough or non-productive cough GI: Denies: abdominal pain, nausea or vomiting Musc: Reports: back pain; Denies: neck pain or joint pain Neuro: Denies: headache(s) or dizziness Psych: Denies: anxiety or depression Damien/Lymph: Reports: easy bruising; Denies: easy bleeding Medications/Allergies Home Medications Medication Instructions Recorded Confirmed Last Taken Type aspirin 81 mg tablet,delayed 81 mg PO DAILY 02/03/20 03/18/23 Unknown History release (Adult Aspirin Regimen) Allergies Allergy/AdvReac Type Severity Reaction Status Date / Time Lrrajzt-URP-LcX Reductase Allergy Unknown Unknown Verified 01/23/21 12:56 Inhibitor [Sjkocts-Lbc-Knd Reductase Inhibitor] Current Medications Generic Name Dose Route Start Last Admin Trade Name Freq PRN Reason Stop Dose Admin Enoxaparin Sodium 60 mg 03/18/23 04:00 03/18/23 04:39 Enoxaparin 60 Mg/0.6 Ml Syringe SUBCUT 60 mg Q12H RAJIV Administration Sodium Chloride 1,000 mls @ 100 mls/hr 03/18/23 05:22 03/18/23 05:28 Sodium Chloride 0.9% IV 100 mls/hr .Q10H RAJIV Administration PFSH Acute PFSH: Medical History Peripheral Vascular Disease Varicose veins of bilateral lower extremities with pain Family History Other COPD (chronic obstructive pulmonary disease) Social History Smoking and tobacco status: former smoker Second hand smoke exposure: Yes (as a child) Alcohol intake: never Substance/Drug Use: never Vitals/I&O/Wt Last Vital Signs Temp 98.2 F 03/18/23 08:00 Pulse 75 03/18/23 08:00 Resp 15 03/18/23 08:00 BP 149/82 03/18/23 08:00 Pulse Ox 97 03/18/23 08:00 O2 Del Method Room Air 03/18/23 08:00 03/17/23 03/18/23 03/18/23 22:59 06:59 14:59 Intake Total 1000 / 1000 Balance 1000 / 1000 Weight last 48 hrs Weight 125 lb Physical Exam Narrative: GENERAL: Patient is alert, awake and oriented x3. [] NECK: No jugular vein distension. [] HEENT: No cyanosis. No icterus. No pallor. [] HEART: Regular S1 and S2. No murmur, rub or gallop. [] LUNGS: Clear to auscultate bilaterally. [] CENTRAL NERVOUS SYSTEM: Grossly nonfocal. [] EXTREMITIES: Lower extremities with no edema bilaterally.[] Data 03/19/23 03:54 03/19/23 03:54 A&P Assessment and plan (1) Chest pain: (2) Peripheral Vascular Disease: (3) Varicose veins of bilateral lower extremities with pain: Plan Patient has been having worsening anginal symptoms. Also had a stress test that showed prior infarct with hilario-infarct ischemia. We will proceed with coronary angiogram with possible percutaneous coronary intervention. Risks and benefits of the procedure been discussed with the patient. N.p.o. past midnight. Continue aspirin. Echocardiogram ordered Thank you for involving us with care of this patient. We will continue to follow. Please call with questions. Consult Attestations Medical Necessity Statement: Care expected to cross 2 midnights. Coding Level of Care Code Acute Code for Chg Fwd Diagnoses Chest pain R07.9 Peripheral Vascular Disease I73.9 Varicose veins of bilateral lower extremities with pain I83.813
[2023-03-18] MEDS: aspirin 81 mg EC Tablet PO (08:46)
[2023-03-18] MEDS: pantoprazole DR 40 mg Tablet PO (08:46)
[2023-03-18 10:55] LABS: Estmated Average Glucose 111; Hemoglobin A1C 5.5 % (4.0-6.0)
--- NOTE | 2023-03-18 12:04 | P.PN_ITS ---
Subjective Subjective: She states that she is currently feeling better. Denies chest pain or pressure. Denies shortness of breath. She has met with cardiology, and they have discussed and planning for assessment with coronary angiography tomorrow. Vitals/I&O/Wt Last Vital Signs Temp 98.3 F 03/18/23 11:49 Pulse 80 03/18/23 11:49 Resp 16 03/18/23 11:49 BP 147/81 03/18/23 11:49 Pulse Ox 94 03/18/23 11:49 O2 Del Method Room Air 03/18/23 11:49 03/17/23 03/18/23 03/18/23 22:59 06:59 14:59 Intake Total 1000 / 1000 Balance 1000 / 1000 Weight last 48 hrs Weight 56.699 kg Physical Exam Narrative: Accompanied by her . Const: COMMON NORMALS: patient oriented x3 and alert GENERAL APPEARANCE: co operative ORIENTATION/CONSCIOUSNESS: Yes awake HENMT: COMMON NORMALS: oropharynx normal Neck/C-Spine: COMMON NORMALS: no JVD Resp: COMMON NORMALS: normal respiratory effort and clear to auscultation bilaterally AUSCULTATION: clear to auscultation bilaterally Cardio: COMMON NORMALS: no JVD, regular rhythm, S1 normal heart sound present, S2 normal heart sound present and No murmurs present (Cardio) RHYTHM: regular rhythm HEART SOUNDS: S1 normal heart sound present and S2 normal heart sound present GI: COMMON NORMALS: Normal to inspection, nondistended, normoactive bowel sounds present, Soft to palpation and non-tender PALPATION: Yes Soft to palpation Extremity: COMMON NORMALS: no joint enlargement and no pedal edema Neuro: COMMON NORMALS: patient oriented x3 and moves all extremities SENSORIUM/ORIENTATION: Yes alert Skin: COMMON NORMALS: no rashes or lesions noted GENERAL SKIN EXAM: no rashes or lesions noted Data 03/18/23 00:55 03/18/23 00:55 A&P Assessment and plan (1) Chest pain: (2) Peripheral Vascular Disease: (3) Varicose veins of bilateral lower extremities with pain: Plan #Chest pain, positive stress test outpatient, unstable angina #Shortness of breath on exertion most likely secondary to above #Centrilobular emphysema #Peripheral vascular disease #Varicose veins Discussed with cardiology, assessment and recommendations appreciated medical history of unstable angina. With abnormal stress test, symptoms, plan for assessment with coronary angiography tomorrow. Follow-up chemistry requested. N.p.o. after midnight Echocardiogram reviewed, noted normal ejection fraction, grade 1 diastolic dysfunction. Continue cardiac medications currently with therapeutic anticoagulation, at risk of bleeding, monitor. Follow-up CBC requested. Also continues on aspirin. N oted allergy to statin. Add metoprolol. ? Troponin negative ? Has typical cardiac symptoms. Had a recent positive stress test as an outpatient. TSH noted 5.22 but normal free T4. Follow-up with PCP. A1c noted 5.5. ? DuoNeb every 6 hours as needed Full code SCDs, therapeutic Lovenox for DVT prophylaxis Attestations Medical Necessity Statement*: Continue hospitalization for for assessment management of unstable angina. Diagnoses Chest pain R07.9 Peripheral Vascular Disease I73.9 Varicose veins of bilateral lower extremities with pain I83.813
[2023-03-18] MEDS: metoprolol tartrate 50 mg Tablet PO ×2 (12:53→20:13)
--- NOTE | 2023-03-18 16:16 | ECG_ITS ---
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 Measurements Intervals [place] Rate: 57 P: 47 AR: 151 QRS: -19 QRSD: 102 T: 22 QT: 411 QTc: 403 Interpretive Statements SINUS BRADYCARDIA VOLTAGE CRITERIA FOR LVH [MEETS CRITERIA IN ONE OF: R(aVL), S(V1), R(V5), R(V5/V6)+S(V1)] Compared to ECG 03/18/2023 02:46:08 Sinus rhythm no longer present Electronically Signed On 03-18-2023 19:23:59 CDT by Santana Yang M.D. [id number]
[2023-03-19] VITALS (8 sets, daily range): BP systolic 102–132; BP diastolic 61–78; PULSE 53–78; RESP 14–19; TEMP 36.6–36.9; O2SAT 95–97
[2023-03-19] MEDS: enoxaparin 60 mg/0.6 mL Syringe SUBCUT (03:22)
[2023-03-19 04:21] LABS: Basophils # 0.1 10^3/uL (0.0-0.1); Eosinophils # 0.2 10^3/uL (0.0-0.8); Hematocrit 37.9 % (37.0-47.0); Hemoglobin 12.6 g/dL (11.5-15.3); Lymphocytes # 2.3 10^3/uL (0.8-4.8); Mean Corpuscular HGB Conc 33.2 g/dL (30.0-36.0); Mean Corpuscular Hemoglobin 31.1 pg (28.0-34.0); Mean Corpuscular Volume 93.6 fl (81-99); Monocytes # 0.5 10^3/uL (0.2-0.9); Monocytes % 8.4 %; Neutrophils # 2.84 10^3/uL (1.8-7.7); Neutrophils % 47.4 %; Nucleated Red Blood Cells % 0 %; Platelet Count 244 10^3/cmm (130-400); Red Blood Count 4.05 10^6/uL (4.1-5.3); Red Cell Distribution Width 12.8 % (12.1-15.1)
[2023-03-19 04:36] LABS: Anion Gap 14.1 (5-19); Blood Urea Nitrogen 14 mg/dL (8-23); Calcium 8.9 mg/dL (8.5-10.5); Carbon Dioxide 26 mmol/L (22-29); Chloride 103 mmol/L (98-107); Glucose 99 mg/dL (65-115); Magnesium 2.4 mg/dL (1.7-2.3); Osmolality Calculated 289 mOsm/kg (285-295); Potassium 4.1 mmol/L (3.5-5.1); Sodium 139 mmol/L (136-145)
--- NOTE | 2023-03-19 05:53 | XACV_ITS ---
Exam Room: 2 Ht: 160 cm Wt: 57 kg BSA: 1.59 m2 Gender: Female : 1945 Any Known Allergies: Other Exam Priority: Routine Procedure(s): Procedure Description: Diagnostic procedure Procedure Description: Left Heart Catheterization Procedure Description: Left ventriculography Procedure Description: Coronary Angiography Diagnostic Cath Status: Urgent Diagnostic Findings * No significant disease noted in the Left Main, Left Anterior Descending, Right, or Circumflex coronary arteries. * INDICATION: Worsening angina/abnormal stress test. * Coronary angiography shows right dominance. Conclusions 1. No significant disease noted in the Left Main, Left Anterior Descending, Right, or Circumflex coronary arteries. 2. Normal left ventricular systolic function. Ejection fraction of 60%. Recommendations * Aggressive risk factor modification. * Outpatient cardiology follow up in 4 weeks. Interventional RX Recommendation: medical therapy and/or counseling Diagnostic RX Recommendation: medical therapy and/or counseling Ventriculography Ejection Fraction: 60.0 % Pressures Phase:Rest AO : 87 / 65 ( 76 ) @ 11:39:00 AM 148 / 67 ( 102 ) @ 11:45:00 AM 148 / 66 ( 101 ) @ 11:45:00 AM LV : 140 / -19 / 11 @ 11:44:00 AM 129 / -14 / 13 @ 11:45:00 AM 127 / -13 / 13 @ 11:45:00 AM Valves Phase:DefaultPhase AV : 0.0 @ 10:52:45 AM 0.0 @ 10:52:45 AM AV Mean Gradient: 0.0 @ 10:52:45 AM Clinical Evaluation EBL: 5mL-10mL Procedural Details Procedure Consent Obtained. Pre-Procedure Time Out. Identified patient by full name and date of as verbalized by the patient/guarantor. Does the consent match the physician's order: Yes. Accurate & Complete Informed Consent: Yes. Inpatient/Outpatient History & Physical on Chart: Yes. If H&P is completed, is and addenduem needed: No. Visualize and Verify Site with Patient/Guarantor: N/A. Relevant Radiology Images available: Yes. The risks, benefits, and alternatives of sedation and/or procedure were discussed by physician. The patient agrees to continue. Procedure started. [facility] [place] Clinical Fraility Score: 3: Managing Well. Salt Plant Operator Indications: Worsening Angina/Abnormal stress test. Chest Pain Symptom Assessment: Typical Angina Symptoms. Cardiovascular Instability: No. Correct patient, site and procedure confirmed by cath team. PERRLA. Strong, equal hand training mgr bilaterally. Lungs clear x 5 lobes. IV Site on Arrival: 20 gauge in the right anticubital. IV Fluids: 0.9% NaCl at KVO. 0 mL infused prior to trestle mainternance laborer. Pre Procedural Pulses: bilateral radial was 3+. Oxygen started at 2liters/min via nasal canula. right groin was prepped with chloroprep then draped in the usual sterile fashion. right radial was prepped with chloroprep then draped in the usual sterile fashion. Physician notified. Baseline sample Acquired. HR: 63 BPM. Patient's family unavailable in the trestle mainternance laborer waiting room. Dr. Yang will update at the completion of the case. Equipment: 6F - Radial. Cardiac Cath Pack. ACIST Manifold Kit Model BT 2000. Heparinized Saline (2 units/mL), 1000 mL bag. Physician arrived. Physician scrubbed in. Immediate Pre-Procedure Time Out. Correct Patient: Yes; Correct Procedure: Yes; Correct Site: Yes; Correct Patient Position: Yes; Correct Supplies: Yes; Dried Flammable Prep: Yes; Blood Products Available: N/A;. Lidocaine 1% infiltrated to the right radial. Arterial access obtained. A 5 indonesian TIG catheter in over the exchange J wire. Multiple views taken of left coronary artery. Catheter redirected to the RCA. Multiple views taken of right coronary artery. Catheter removed over the exchange J wire. A 6 indonesian Angled Pig catheter in over the exchange wire. EDP Sample taken: LV 140/-20,11; HR: 64 BPM; SpO2: 99%. LV gram performed in GALVIN @ 10 mL/second for a total of 30 mL. EDP Sample taken: LV 129/-15,13; HR: 63 BPM; SpO2: 99%. Pullback taken: LV 127/-14,13; AO 148/67(102); Mean: 0mmHg, Peak to Peak: 0mmHg, SEP: 4sec/min; HR: 67 BPM; SpO2: 99%. Catheter removed over the exchange J wire. Physician scrubbed out. A TR Band was successful obtaining hemostatsis at the Right Radial artery insertion site. TR band placed. Hemostasis obtained. Post Procedure: Pulses reassessed and unchanged. PERRLA. Strong, equal hand training mgr bilaterally. No VTE prophylaxis required. Medication's Wasted: Lidocaine 1% = 2 mL. Medication's Wasted: Nitro = 49.8 mg. Medication's Wasted: Other = Versed 1 mL. Medication's Wasted: Other = Fentanyl 50 mcg. Medication's Wasted: Heparin = 1000 Units. Post-op diagnosis: Non-Obstructive CAD. Complications: none. Estimated blood loss: 5mL-10mL. Responsiveness - Normal response to verbal stimuli; alert and oriented, PERRLA. Airway - Unaffected, no intervention required; spontaneous ventilation. Circulation: W/N/L, pulses unchanged. Nausea/Vomiting: No. Procedure completed. Patient transferred by bed to 1st floor. Vital chart was stopped. Access Site Site: Right Radial artery Sheath Size: 6 Fr Hemostasis Method: TR Band Hemostasis Success: Successful Procedure Medications Start: 10:32 AM Stop: 10:32 AM Medication: Versed Amount: 1 mg Route: I.V. Start: 10:32 AM Stop: 10:32 AM Medication: Versed Amount: 1 mg Route: I.V. Start: 10:33 AM Stop: 10:33 AM Medication: Fentanyl Amount: 50 mcg Route: I.V. Start: 10:37 AM Stop: 10:37 AM Medication: Nitrogylcerin Amount: 200 mcg Route: I.A. I, the attending physician, have reviewed and verified all procedure medications. Yes, all medications given per verbal order History/Risk Factors Hypertension: No Dyslipidemia: No Peripheral Arterial Disease (PAD): Yes Myocardial Infarction ([place]): No Obesity: No Renal Disease: No Tobacco Use: Former Prior Interventions PCI: No CABG: No Valve Surgery: No Report Signatures Finalized by Santana Yang MD on 03/19/2023 11:32 AM
[2023-03-19] MEDS: aspirin 81 mg EC Tablet PO (08:09)
[2023-03-19] MEDS: pantoprazole DR 40 mg Tablet PO (08:09)
--- NOTE | 2023-03-19 08:59 | PC.CHAP ---
Pastoral Care Encounter/Spiritual Assessment Type of Contact [] Declined adapted physical education teacher visit [] Patient/Family/Request visit [] Outpatient visit [] Follow-up visit [] Physician referral [] Code/Alert [x] Routine visit [] Staff referral [] Actively dying [] Patient sleeping [] Family support [] [] Out of room [] Palliative care [] [] Receiving care in room [] Pre-surgical visit [] Trauma [] Long length of stay [] ICU visit [] Other: Relational/Emotional Strength [x] Patient feels connected with others/family/visitors/staff [] Distress [] Loneliness/isolation [] Abandonment Spirituality of Patient [x] Person of Sharyn [] Attends Adventism of their Sharyn [x] Believes in Prayer [] Reads Bible or Buddhist materials [] There are Spiritual issues to be addressed Installer Interventions [x] Prayer [] Active listening [] Non-anxious presence [x] Spiritual/emotional support [] Crisis/trauma care [] Spiritual counseling [] Bereavement support [] Provided bereavement packet [] Provided Bible/devotional materials [] Provided toy/stuffed animal, coloring book to patient or family member [] Provided Communion [] Anointing/Adrian [] Salvation [x] Completed spiritual assessment [] Other: Impact on Illness or Injury [] Angry [] Fearful [] Anxious [] Often cries [] Exhaustion [] Unable to work [] Unable to attend uatsdin [] Unable to walk/stand [] Unable to read [] Unable to drive [] Unable to eat/drink [] Unable to sleep [] Unable to be with family [] Patient intubated [] Other: Summary Time spent with patient 5 min
--- NOTE | 2023-03-19 10:29 | W.PM.OPSUD ---
Surgery/Procedure H&P Update DATE OF PROCEDURE: March 19, 2023 DATE H&P PERFORMED: 03/18/23 H&P UPDATE INFORMATION: I have reviewed H&P completed within last 30 days, I have examined patient prior to procedure and No changes to prior documentation PREOP DIAGNOSIS: Worsening angina/abnormal stress test PRIMARY INDICATION FOR PROCEDURE: Worsening angina/abnormal stress test PLANNED PROCEDURE: Operation Date: 03/19/23 10:35 Proposed Procedures p Cardiac Catheterization(Left) - Santana Yang M.D Possible percutaneous coronary intervention PATIENT REASSESSED PRIOR TO SEDATION, WITH NO CHANGE NOTED: Yes PHYSICAL EXAM: alert, oriented x 3, clear to auscultation bilaterally and regular rate & rhythm AIRWAY EVAL/ANESTHESIA PLAN: normal airway, ASA III, Local Anesthesia, Risks, benefits & alternatives of sedation and/or procedure discussed and Patient agrees to continue as planned ADDITIONAL INFORMATION: Moderate sedation
--- NOTE | 2023-03-19 10:56 | PM.PN ---
Subjective Subjective: Patient is doing well. No chest pain. 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 Vitals/I&O/Wt Last Vital Signs Temp 97.9 F 03/19/23 07:17 Pulse 55 L 03/19/23 07:49 Resp 16 03/19/23 07:49 BP 124/69 03/19/23 07:17 Pulse Ox 96 03/19/23 07:49 O2 Del Method Room Air 03/19/23 07:49 03/18/23 03/19/23 03/19/23 22:59 06:59 14:59 Intake Total 1240 / 1480 0 / 1480 Output Total 0 / 0 Balance 1240 / 1480 0 / 1480 Weight last 48 hrs Weight 125 lb Physical Exam Narrative: GENERAL: Patient is alert, awake and oriented x3. [] NECK: No jugular vein distension. [] HEENT: No cyanosis. No icterus. No pallor. [] HEART: Regular S1 and S2. No murmur, rub or gallop. [] LUNGS: Clear to auscultate bilaterally. [] CENTRAL NERVOUS SYSTEM: Grossly nonfocal. [] EXTREMITIES: Lower extremities with no edema bilaterally.[] Data 03/19/23 03:54 03/19/23 03:54 A&P Assessment and plan (1) Chest pain: (2) Peripheral Vascular Disease: (3) Varicose veins of bilateral lower extremities with pain: Plan Coronary angiogram did not show significant CAD. Aggressive risk factor modification. Echocardiogram shows normal LV systolic function Thank you for involving us with care of this patient. Patient can be discharged later today if access site is normal. Please call with questions. Attestations Medical Necessity Statement*: Care expected to cross 2 midnights. Coding Level of Care Code Acute Code for [facility] Diagnoses Chest pain R07.9 Peripheral Vascular Disease I73.9 Varicose veins of bilateral lower extremities with pain I83.813
--- NOTE | 2023-03-19 17:10 | PM.DCS ---
Discharge Providers Date of Admission: 03/18/23 05:22 Date of Discharge: March 19, 2023 Attending Provider at Admission: Melonie Jha MD Attending Provider at Discharge: Conner Alberts Primary Care Provider: Marisela Wade MD Diagnoses at Discharge Discharge Diagnosis (1) Chest pain: Status: Acute (2) Peripheral Vascular Disease: Status: Acute (3) Varicose veins of bilateral lower extremities with pain: Status: Acute Reason for Visit Reason for Visit: sob Hospital Course Hospital Course Pleasant 77-year-old lady with history of PVD, varicose veins, former smoker, was observed in the hospital after presenting with generalized weakness and chest pain. Symptoms starting about 2 weeks previously, pain radiating to her arm and arm feeling heavy. Recently had a stress test done which showed abnormal myocardial perfusion with medium sized prior infarct with infarct ischemia in apical and apical inferior teran. She was assessed with troponin series which did not show elevation. On presentation additionally with hypertension, blood pressure noted up to 196/95. Was started on metoprolol. Blood pressure is improved. His chest pain has resolved without recurrence. Echocardiogram was unremarkable with grade 1 diastolic dysfunction, mild MVR, mild TVR. She was assessed by cardiology. Given her symptoms and abnormal stress test underwent additional assessment by coronary angiography which revealed nonobstructing CAD. She is asked to continue aspirin, she is noted to be intolerant of statins, please revisit with her regarding prior statin tried, consider alternatives. Total cholesterol is 272, LDL 163, HDL 47. She is started on metoprolol at discharge. Continue to optimize coronary disease risk factors. Please follow-up blood pressure and optimize control. Following cholangiogram today she is doing well and wants to return home. No issues with access site noted. She ambulated up and down the hallway and is doing well. Please follow-up renal function at next visit. Additionally noted abnormality TSH, 5.22. Free T4 was normal, however, at 1.05. Please follow-up thyroid function in 3-4 weeks. Physical Exam Narrative: Accompanied by her . This morning she is doing well denies chest pain or pressure. Awaiting angiogram. Revisit after angiogram denies chest pain or pressure, doing very well, no shortness of breath. Asked to ambulate in the hallway and did so up and down without any symptoms. Const: COMMON NORMALS: patient oriented x3 and alert GENERAL APPEARANCE: cooperative ORIENTATION/CONSCIOUSNESS: Yes awake HENMT: COMMON NORMALS: oropharynx normal Neck/C-Spine: COMMON NORMALS: no JVD Resp: COMMON NORMALS: normal respiratory effort and clear to auscultation bilaterally AUSCULTATION: clear to auscultation bilaterally Cardio: COMMON NORMALS: no JVD, regular rhythm, S1 normal heart sound present, S2 normal heart sound present and No murmurs present (Cardio) RHYTHM: regular rhythm HEART SOUNDS: S1 normal heart sound present and S2 normal heart sound present GI: COMMON NORMALS: Normal to inspection, nondistended, normoactive bowel sounds present, Soft to palpation and non-tender PALPATION: Yes Soft to palpation Extremity: COMMON NORMALS: no joint enlargement and no pedal edema OTHER: Right wrist without any swelling, bruising or bleeding. Neuro: COMMON NORMALS: patient oriented x3 and moves all extremities SENSORIUM/ORIENTATION: Yes alert Skin: COMMON NORMALS: no rashes or lesions noted GENERAL SKIN EXAM: no rashes or lesions noted Discharge Data Studies Completed and Pending Completed Studies During Hospitalization Category Date Time Status [employer] request for service Routine Exams 03/19/23 05:53 Completed XR chest 1V portable [id number] Stat Exams 03/18/23 00:18 Completed US echo complete [CV. echo complete* [id number]] Routine Ultrasound 03/18/23 04:01 Completed Radiology Impressions Chest X-Ray 03/18/23 00:18 IMPRESSION: No acute findings. Laboratory Results WBC 6.0 10^3/uL (4.0-10.0) 03/19/23 03:54 RBC 4.05 10^6/uL (4.1-5.3) L 03/19/23 03:54 Hgb 12.6 g/dL (11.5-15.3) 03/19/23 03:54 Hct 37.9 % (37.0-47.0) 03/19/23 03:54 MCV 93.6 fl (81-99) 03/19/23 03:54 MCH 31.1 pg (28.0-34.0) 03/19/23 03:54 MCHC 33.2 g/dL (30.0-36.0) 03/19/23 03:54 RDW 12.8 % (12.1-15.1) 03/19/23 03:54 Plt Count 244 10^3/cmm (130-400) 03/19/23 03:54 MPV 10.0 fL (7.4-10.4) 03/19/23 03:54 Neut % (Auto) 47.4 % 03/19/23 03:54 Lymph % (Auto) 39.0 % 03/19/23 03:54 [place] % (Auto) 8.4 % 03/19/23 03:54 Eos % (Auto) 4.0 % 03/19/23 03:54 Baso % (Auto) 1.0 % 03/19/23 03:54 Neut # (Auto) 2.84 10^3/uL (1.8-7.7) 03/19/23 03:54 Lymph # (Auto) 2.3 10^3/uL (0.8-4.8) 03/19/23 03:54 [place] # (Auto) 0.5 10^3/uL (0.2-0.9) 03/19/23 03:54 Eos # (Auto) 0.2 10^3/uL (0.0-0.8) 03/19/23 03:54 Baso # (Auto) 0.1 10^3/uL (0.0-0.1) 03/19/23 03:54 Nucleated RBC % (auto) 0 % 03/19/23 03:54 Nucleated RBCs # 0.0 /100WBC 03/19/23 03:54 Sodium 139 mmol/L (136-145) 03/19/23 03:54 Potassium 4.1 mmol/L (3.5-5.1) 03/19/23 03:54 Chloride 103 mmol/L (98-107) 03/19/23 03:54 Carbon Dioxide 26 mmol/L (22-29) 03/19/23 03:54 Anion Gap 14.1 (5-19) 03/19/23 03:54 BUN 14 mg/dL (8-23) 03/19/23 03:54 Creatinine 1.0 mg/dL (0.5-0.9) H 03/19/23 03:54 GFR Calculation Not Reportable 03/19/23 03:54 Glucose 99 mg/dL (65-115) 03/19/23 03:54 Estimat Average Glucose 111 03/18/23 00:55 Hemoglobin A1c 5.5 % (4.0-6.0) 03/18/23 00:55 Calculated Osmolality 289 mOsm/kg (285-295) 03/19/23 03:54 Calcium 8.9 mg/dL (8.5-10.5) 03/19/23 03:54 Magnesium 2.4 mg/dL (1.7-2.3) H 03/19/23 03:54 Total Bilirubin 0.2 mg/dL (0.15-1.2) 03/18/23 00:55 AST 31 U/L (0-32) 03/18/23 00:55 ALT 22 U/L (0-33) 03/18/23 00:55 Alkaline Phosphatase 89 U/L (35-105) 03/18/23 00:55 Troponin T Baseline 12 ng/L (0-10) H 03/18/23 00:55 Troponin T 120 Minute 9.36 ng/L (0-10) 03/18/23 02:43 Delta Troponin T -2.64 ABS# (0-10) L 03/18/23 02:43 Troponin T Hi Sens 6Hr 8.67 ng/L (0-10) 03/18/23 06:52 Troponin T Hi Sens 6Hr Delta -3.33 ng/L (0-12) L 03/18/23 06:52 NT-Pro-B Natriuret Pep 36 pg/mL (0-450) 03/18/23 00:55 Total Protein 7.6 g/dL (6.6-8.7) 03/18/23 00:55 Albumin 5.0 g/dL (3.5-5.2) 03/18/23 00:55 Globulin 2.6 g/dL (1.3-4.6) 03/18/23 00:55 Triglycerides 310 mg/dL (0-150) H 03/18/23 00:55 Cholesterol 272 mg/dL (0-200) H 03/18/23 00:55 LDL Cholesterol, Calc 163 mg/dL (50-129) H 03/18/23 00:55 HDL Cholesterol 47 mg/dL (60-100) L 03/18/23 00:55 LDL/HDL Ratio 3.47 RATIO (0.00-3.22) H 03/18/23 00:55 Cholesterol/HDL Ratio 5.79 mg/dL (0.0-4.40) H 03/18/23 00:55 Lipase 61 U/L (13-60) H 03/18/23 00:55 TSH 5.22 uIU/mL (0.27-4.20) H 03/18/23 00:55 Free T4 1.05 ng/dL (0.82-1.77) 03/18/23 00:55 Vitals Last Vital Signs Temp 98.2 F 03/19/23 15:27 Pulse 78 03/19/23 15:52 Resp 15 03/19/23 15:27 BP 102/63 03/19/23 15:27 Pulse Ox 97 03/19/23 15:27 O2 Del Method Room Air 03/19/23 15:27 Discharge Plan Discharge Patient Disposition: Home Condition: Stable Prescriptions: New metoprolol succinate 25 mg tablet extended release 24 hr 25 mg PO DAILY Qty: 90 0RF Continued aspirin [Adult Aspirin Regimen] 81 mg tablet,delayed release (DR/EC) 81 mg PO DAILY Discharge Orders: Discharge Order (Routine); Ordered 03/19/23 Ordered By: Conner Alberts Referrals: Marisela Wade MD [Primary Care Provider] - 03/25/23 9:30 am (03/25/23 @ 9:30) Helen Chin FNP [Nurse Practitioner] - 04/01/23 9:30 am (Please follow-up with Helen Chin on April 01 at 9:30A.M. If you have any questions or need to reschedule. Please call ) Discharge Diet: Cardiac Discharge Activity: Increase activity as tolerated and Limit activity as instructed Patient Instructions: Metoprolol (By mouth), Heart Healthy Diet (GEN), Cholesterol and Your Health (GEN), Hypertension (GEN), Hyperlipidemia (GEN), Coronary Artery Disease in Women (GEN), Post Angiogram Home Care Instructions Activity Restrictions/Additional Instructions: Please follow-up with your primary doctor and eclectic doctor for reassessment after episode of chest pain, finding of nonobstructive coronary artery disease. Continue to work with your primary doctor and eclectic doctor to optimize risk factors of coronary disease. You were found to have elevated blood pressure when you came into the hospital As high as 196/95, suspected likely cause of your chest pain. Continue to monitor blood pressure 3 times daily, write down values at home to bring to her appointment. You are started on metoprolol. Monitor your heart rate as well with those measurements. Due to coronary disease long-term you would benefit from statin, please further discuss statin intolerance with your primary doctor with consideration of alternatives. Do not lift anything heavier than 3 pounds for the next 2 days, if you notice any. Mass, bleeding, numbness in the right wrist or hand, seek medical attention immediately. Similarly seek medical attention in case you experience recurrent chest pain, pressure, or any other concerning symptoms. Please have your primary doctor follow-up your kidney function in office at next visit. Discharge Attestations Time Spent in Discharge Care*: greater than 30 min Quality Metrics Clinical Quality Measures [ No reported AMI, CVA or VTE this stay] Coding Level of Care Code 75418 Total time (in minutes) for Discharge: 45 Diagnoses Chest pain R07.9 Peripheral Vascular Disease I73.9 Varicose veins of bilateral lower extremities with pain I83.813
== END 2023-03-19 17:27 | disposition home or self-care (01) ==
LOC: ER 03:28 → CSU 05:54
PROVIDERS: Internal Medicine; Admitting Provider Internal Medicine; Emergency Provider Emergency Medicine; PCP Internal Medicine; Visit Provider Internal Medicine
DX: R53.1 Weakness (principal); R07.9 Chest pain, unspecified; I10 Essential (primary) hypertension; I08.1 Rheumatic disorders of both mitral and tricuspid valves; R94.39 Abnormal result of other cardiovascular function study; I25.10 Atherosclerotic heart disease of native coronary artery without angina pectoris; Z79.82 Long term (current) use of aspirin; I83.813 Varicose veins of bilateral lower extremities with pain; I73.9 Peripheral vascular disease, unspecified; Z87.891 Personal history of nicotine dependence; J43.2 Centrilobular emphysema; E78.5 Hyperlipidemia, unspecified; R00.1 Bradycardia, unspecified
CPT/HCPCS: 36415; 71045; 80048; 80053; 80061; 83036; 83690; 83735; 83880; 84439; 84443; 84484; 85025; 93005; 93306; 93458; 94640; 96372; 99152; 99285; C1769; C1887; C1894; G0378; J1644; J1650; J2250; J3010; J3490; J7030; Q9967

== ENCOUNTER → 2023-04-01 09:12 | Outpatient (BNVA) | payer MEDICARE, SELFPAY | PROVIDERS: PCP Internal Medicine; Visit Provider Nurse Practitioner Family | DX: I25.10 Atherosclerotic heart disease of native coronary artery without angina pectoris (principal); E78.5 Hyperlipidemia, unspecified; Z87.891 Personal history of nicotine dependence; Z79.82 Long term (current) use of aspirin | CPT/HCPCS: 36415; 80048; 99214 ==

== ENCOUNTER → 2023-07-14 14:46 | Outpatient (BNVA) | payer MEDICARE, SELFPAY | PROVIDERS: PCP Internal Medicine; Visit Provider Internal Medicine | DX: I73.9 Peripheral vascular disease, unspecified (principal); E78.5 Hyperlipidemia, unspecified; I83.813 Varicose veins of bilateral lower extremities with pain | CPT/HCPCS: 99214 ==